=== PATIENT | female | born 1930 | race Caucasian/White ===

== ENCOUNTER → 2018-10-05 | Outpatient (CLI) | payer MEDICARE | LOC: PLD 07:04 → LAB SHORT 07:04 | DX: C44.42 Squamous cell carcinoma of skin of scalp and neck (principal) | CPT/HCPCS: 88341; 88342 ==

== ENCOUNTER → 2018-11-20 | Outpatient (CLI) | payer MEDICARE | LOC: LAB SHORT 19:24 → LAB 19:24 | DX: L08.9 Local infection of the skin and subcutaneous tissue, unspecified (principal) | CPT/HCPCS: 87070; 87077; 87186; 87205 ==

== ENCOUNTER 2019-03-22 07:32 | Day surgery (SDC) | payer MEDICARE | END 2019-03-22 22:56 | disposition home or self-care (01) | LOC: WOUND 07:32 | PROC: 0NB00ZZ Excision of Skull, Open Approach (ICD-10-PCS; principal; 2019-03-22) | DX: T81.31XA Disruption of external operation (surgical) wound, not elsewhere classified, initial encounter (principal); Z85.828 Personal history of other malignant neoplasm of skin; Z88.0 Allergy status to penicillin; Z88.1 Allergy status to other antibiotic agents; I10 Essential (primary) hypertension; Z92.3 Personal history of irradiation | CPT/HCPCS: G0463 ==

== ENCOUNTER 2019-03-29 11:07 | Day surgery (SDC) | payer MEDICARE | END 2019-03-29 22:40 | disposition home or self-care (01) | LOC: WOUND 11:07 | DX: T81.31XA Disruption of external operation (surgical) wound, not elsewhere classified, initial encounter (principal); S01.80XA Unspecified open wound of other part of head, initial encounter; I10 Essential (primary) hypertension ==

== ENCOUNTER 2019-04-05 11:10 | Day surgery (SDC) | payer MEDICARE | END 2019-04-05 22:50 | disposition home or self-care (01) | LOC: WOUND 11:10 | PROC: 0HD0XZZ Extraction of Scalp Skin, External Approach (ICD-10-PCS; principal; 2019-04-05) | DX: T81.31XA Disruption of external operation (surgical) wound, not elsewhere classified, initial encounter (principal); Z85.828 Personal history of other malignant neoplasm of skin; Z85.820 Personal history of malignant melanoma of skin ==

== ENCOUNTER 2019-04-19 00:25 | Day surgery (SDC) | payer MEDICARE | END 2019-04-19 23:08 | disposition home or self-care (01) | LOC: WOUND 00:25 | DX: T81.31XD Disruption of external operation (surgical) wound, not elsewhere classified, subsequent encounter (principal); S01.80XD Unspecified open wound of other part of head, subsequent encounter ==